=== PATIENT | male | born 1980 | race Caucasian/White ===

== ENCOUNTER 2021-01-08 08:05 | Inpatient (IN) | payer OTHER ==
[~2021-01-08] VITALS: Ht 175.3 cm; Wt 59.0 kg
[2021-01-08 10:43] LABS: HEMOGLOBIN 14.7 gm/dl (14.0-17.5); RED BLOOD COUNT 4.83 M/UL (4.20-5.50); WHITE BLOOD COUNT 15.9 K/UL (4.5-11.0)
[2021-01-08 11:03] LABS: BUN/CREATININE RATIO 15 (0-10)
[2021-01-10] MEDS ORDERED: LOVENOX40 MG/0.4 SQ (08:23)
[2021-01-10] MEDS ORDERED: ROXICODONE TAB 55 MG GT (08:23)
--- NOTE | 2021-01-11 17:22 | NUR ---
Notified Orthopedic Navigator Azul Covarrubias and Dr. Ever Russell that patient did not have his pain medication or Lovenox. The patients pharmacy had recently been shut down and the patient did not know during admission and neither did we on our end since the pharmacy was still active in our system. His pain medication was initially e-scripted to there but the lovenox was not printed or e-scripted. Azul notified him and he called me back and stated to give the patient a one-time dose of Lovenox 40mg SQ right before discharge. He stated to instruct the patient to call the office at 8am tomorrow morning and he would ensure the patient got their scripts sent to the right pharmacy of their choice. The situation was discussed with the patient and the patient and family was ok with him still being discharged home.
--- NOTE | 2021-01-12 13:56 | NUR ---
CALLED DR BROWN OFFICE AND SPOKE TO CHRISTY THE NURSE AND SHE WILL HAVE DR FENTON SENT SCRIPTS TO [facility] , LOVENOX AND OXYCODONE , THEY WILL CALL PT WHEN DR FENTON DOES IT. PT CALLED FROM NUMBER [phone]
== END 2021-01-11 17:50 | disposition home or self-care (01) | DRG 493 ==
LOC: ER1 08:05 → M/S 12:00 → CDU 12:00 → M/S 13:04
PROVIDERS: Orthopaedic Surgery; Student in an Organized Health Care Education/Training Program; ADMIT Surgery
PROC: 0QSH05Z Reposition Left Tibia with External Fixation Device, Open Approach (ICD-10-PCS; 2021-01-09)
PROC: 0QSK35Z Reposition Left Fibula with External Fixation Device, Percutaneous Approach (ICD-10-PCS; principal; 2021-01-09 12:14)
DX: S82.142A Displaced bicondylar fracture of left tibia, initial encounter for closed fracture (principal); S82.002A Unspecified fracture of left patella, initial encounter for closed fracture; F17.220 Nicotine dependence, chewing tobacco, uncomplicated; Z20.822 Contact with and (suspected) exposure to COVID-19; F19.10 Other psychoactive substance abuse, uncomplicated; Y92.9 Unspecified place or not applicable; V43.52XA Car driver injured in collision with other type car in traffic accident, initial encounter; W22.11XA Striking against or struck by driver side automobile airbag, initial encounter
CPT/HCPCS: 70450; 71045; 71260; 72125; 72170; 73562; 73590; 73610; 73700; 76000; 80048; 85025; 86850; 86900; 86901; 96374; 96375; 97161; 97165; 99285; C1713; G0480; J0171; J0690; J1100; J1170; J1650; J2001; J2250; J2270; J2405; J2704; J2795; J3010; J7120; Q9967; U0002